=== PATIENT | female | born 1960 | race Caucasian/White ===

== ENCOUNTER → 2020-05-20 | Outpatient (RCR) | payer BC | LOC: OT 04-21 11:06 | PROVIDERS: ATTEND Orthopaedic Surgery | DX: S62.92XA Unspecified fracture of left hand, initial encounter for closed fracture (principal) | CPT/HCPCS: 97010 ×3; 97022 ×8; 97110 ×11; 97165; L3906 ==

== ENCOUNTER 2020-06-18 10:00 | Outpatient (RCR) | payer BC, OTHER | END 2020-06-19 | LOC: OT 10:00 | PROVIDERS: ATTEND Orthopaedic Surgery | DX: S62.92XA Unspecified fracture of left hand, initial encounter for closed fracture (principal) ==

== ENCOUNTER 2020-07-16 10:00 | Outpatient (RCR) | payer OTHER | END 2020-07-20 | LOC: OT 10:00 | PROVIDERS: ATTEND Orthopaedic Surgery ==

== ENCOUNTER 2020-07-27 10:00 | Outpatient (RCR) | payer OTHER | END 2020-08-19 | LOC: OT 10:00 | PROVIDERS: ATTEND Orthopaedic Surgery | DX: S52.502D Unspecified fracture of the lower end of left radius, subsequent encounter for closed fracture with routine healing (principal); M25.532 Pain in left wrist; M25.622 Stiffness of left elbow, not elsewhere classified; M25.632 Stiffness of left wrist, not elsewhere classified; M25.642 Stiffness of left hand, not elsewhere classified; R53.1 Weakness ==